=== PATIENT | female | born 1950 | race Caucasian/White ===

== ENCOUNTER 2017-03-06 11:58 | Emergency (ER) | payer OTHER ==
[~2017-03-06] VITALS: Ht 154.9 cm; Wt 79.0 kg
[~2017-03-06 11:58] MED LIST: GABA300C16 PO; HYDR-3011 PO; IBUP400T22 PO; LOSA25TA5 PO; NAPR-260 PO; OMEP20CA16 PO; SITA1TAB PO
[2017-03-06 12:20] VITALS: Ht 154.9 cm; Wt 79.0 kg
[2017-03-06] MEDS ORDERED: IBUPROFEN 600 MG TAB PO ONE (14:30)
[2017-03-06 14:44] LABS: URINE BLOOD (Dip) POC Negative (NEGATIVE)
--- NOTE | 2017-03-06 14:54 | RADRPT ---
PROCEDURE: XR Chest AP portable CLINICAL INDICATION: Cough TECHNIQUE: An AP portable radiograph of the chest was submitted. COMPARISON: None. FINDINGS: Support Hardware: None Cardiovascular: The cardiovascular silhouette appears unremarkable. Lung Brooks: The lung brooks appear clear with no nodule, alveolar infiltrate, or interstitial promi nence evident. Pleural Spaces: No pneumothorax or pleural effusion is identified. Osseous Structures: Mild degenerative changes are seen diffusely through the thoracic spine. Soft Tissues: The soft tissues appear unremarkable. IMPRESSION: Unremarkable portable chest. Physician Chiara Date Time Electronically viewed and signed by Physician Chiara on 03/06/2017 14:53 RH/
--- NOTE | 2017-03-06 15:54 | RADRPT ---
PROCEDURE: Pelvic ultrasound. CLINICAL INDICATION: Pelvic pain TECHNIQUE: Win scale, color doppler, spectral doppler ultrasound of the pelvis was performed with transabdominal and transvaginal transducers. COMPARISON: No prior studies are available for comparison. FINDINGS: Uterus: Position: Anteverted. Small intramural fibroid measuring 0.5 x 0.5 cm within the dorsal aspect of the lower uterine body m ay minimally abut the endometrium. Normal appearance of the endometrium. Ovaries: Not visualized by the lacquer maker. Free fluid: None. Measurements: Endometrium: 0.2 cm Uterus: 5.5 x 2.5 x 3.4 cm IMPRESSION: Ovaries not identified by the lacquer maker. Normal appearance of the endometrium. Small intramural fibroid measuring 0.5 x 0.5 cm within the dorsal aspect of the lower uterine body m ay minimally abut the endometrium. RPTAT: AADD .Deny Niño MD, Date Time Electronically viewed and signed by .Deny Niño MD, on 03/06/2017 15:54 .B/
--- NOTE | 2017-03-06 16:18 | ERD ---
ER Documentation Chief Complaint Date/Time DATE: 03/06/17 TIME: 16:17 Chief Complaint Pt presents with ST, cough and R pelvic pain X 3 days, worst today. HPI This is a 66-year-old female who presents to the emergency department today complaining of sore throat, cough, body aches and right-sided pelvic pain for the past 3 days and worse today. Denies any vaginal bleeding. States she has a history of 3 C-sections. States that her appendix was taken out during her C- section. Denies any fevers or chills. ROS All systems reviewed and are negative except as per history of present illness. Medications Home Meds Active Scripts Tramadol HCl (Tramadol HCl) 50 Mg Tablet, 50 MG PO Q4 Y for PAIN, #20 TAB Prov:DREW HOUSE PA-C 03/06/17 Cetirizine Hcl* (Zyrtec*) 10 Mg Capsule, 10 MG PO DAILY, #14 TAB.CHEW Prov:DREW HOUSE PA-C 03/06/17 Guaifenesin-Dextromethorphan* (Robitussin* DM) 100MG/10MG/5ML Syrup, 10 ML PO Q6H Y for COUGH for 5 Days, ML Prov:DREW HOUSE PA-C 03/06/17 Acetaminophen* (Tylophen*) 500 Mg Capsule, 1 CAP PO Q6H Y for PAIN AND OR ELEVATED TEMP, #30 CAP Prov:DREW HOUSE PA-C 03/06/17 Ibuprofen* (Motrin*) 600 Mg Tab, 600 MG PO Q6, #30 TAB Prov:DREW HOUSE PA-C 03/06/17 Gabapentin* (Gabapentin*) 300 Mg Capsule, 300 MG PO BID, #60 CAP Prov:QUINTON BENTON NP 10/27/16 Ibuprofen* (Motrin*) 400 Mg Tab, 400 MG PO Q6H Y for PAIN AND OR ELEVATED TEMP, #30 TAB Prov:QUINTON BENTON NP 10/27/16 Reported Medications Omeprazole* (Omeprazole*) Unknown Strength Capsule.dr, PO DAILY, #10 10/27/16 Naproxen* (Naprosyn*) Unknown Strength Tablet, PO BID Y for PAIN AND/OR INFLAMMATION, #30 TAB 10/27/16 Losartan Potassium* (Losartan Potassium*) Unknown Strength Tablet, PO BID, TAB 10/27/16 Hydroxyzine Hcl* (Hydroxyzine Hcl*) Unknown Strength Tablet, PO QID, #40 TAB 10/27/16 Sitagliptin Phos/Metformin HCl (Janumet 50-500 mg Tablet) Unknown Strength Tablet, PO, TAB 10/27/16 Allergies Allergies: Coded Allergies: No Known Allergy (Unverified , 10/26/16) PMhx/Soc History of Surgery: Yes (carpal tunnel surgery, C SECTION X 3, APPENDECTOMY) Anesthesia Reaction: No Hx Neurological Disorder: No Hx Respiratory Disorders: No Hx Cardiac Disorders: Yes (HTN) Hx Psychiatric Problems: No Hx Miscellaneous Medical Probl: Yes (DM, ARTHRITIS) Hx Alcohol Use: No Hx Substance Use: No Hx Tobacco Use: No Smoking Status: Never smoker Physical Exam Vitals Vital Signs Date Time Temp Pulse Resp B/P Pulse Ox O2 Delivery O2 Flow Rate FiO2 03/06/17 12:20 97.9 88 20 177/81 95 Physical Exam Const: Pleasant, no acute distress, smiling Head: Atraumatic Eyes: Normal Conjunctiva ENT: Ears TMs normal. Nose no drainage. Throat no erythema no exudate. Neck: Full range of motion..~ No meningismus. Resp: Clear to auscultation bilaterally. No absent breath sounds. No wheezing. Cardio: Regular rate and rhythm, no murmurs Abd: Soft, suprapubic tenderness and right-sided pelvic tenderness, non distended. Normal bowel sounds. Nontender at McBurney's. No left lower quadrant pain. Skin: No petechiae or rashes Back: No midline or flank tenderness Neur: Awake and alert Psych: Normal Mood and Affect Results 24 hrs Laboratory Tests Test 03/06/17 14:43 Bedside Urine pH (LAB) 5.5 Bedside Urine Protein (LAB) Trace Bedside Urine Glucose (UA) 0.50% Bedside Urine Ketones (LAB) Negative Bedside Urine Blood Negative Bedside Urine Nitrite (LAB) Negative Bedside Urine Leukocyte Esterase (L Negative Current Medications Medications (Trade) Dose Ordered Sig/Nita Route PRN Reason Start Time Stop Time Status Last Admin Dose Admin Ibuprofen (Motrin) 600 mg ONCE ONCE PO 03/06/17 14:30 03/06/17 14:31 DC 03/06/17 14:33 DIAGNOSTIC IMAGING REPORT Patient: BRIT FLOREZ : 1950 Age: 66 Sex: F MR #: [id number] DOS: 03/06/17 0000 Ordering MD: DREW HOUSE PA-C Location: [facility] Room/Bed: PROCEDURE: XR Chest AP portable CLINICAL INDICATION: Cough TECHNIQUE: An AP portable radiograph of the chest was submitted. COMPARISON: None. FINDINGS: Support Hardware: None Cardiovascular: The cardiovascular silhouette appears unremarkable. Lung Fernandes: The lung fernandes appear clear with no nodule, alveolar infiltrate, or interstitial prominence evident. Pleural Spaces: No pneumothorax or pleural effusion is identified. Osseous Structures: Mild degenerative changes are seen diffusely through the thoracic spine. Soft Tissues: The soft tissues appear unremarkable. IMPRESSION: Unremarkable portable chest. Physician Chiara Date Time Electronically viewed and signed by Physician Chiara on 03/06/2017 14:53 RH/ CC: DREW HOUSE PA-C IAGNOSTIC IMAGING REPORT Patient: BRIT FLOREZ : 1950 Age: 66 Sex: F MR #: [id number] DOS: 03/06/17 0000 Ordering MD: DREW HOUSE PA-C Location: E Room/Bed: PROCEDURE: Pelvic ultrasound. CLINICAL INDICATION: Pelvic pain TECHNIQUE: Win scale, color doppler, spectral doppler ultrasound of the pelvis was performed with transabdominal and transvaginal transducers. COMPARISON: No prior studies are available for comparison. FINDINGS: Uterus: Position: Anteverted. Small intramural fibroid measuring 0.5 x 0.5 cm within the dorsal aspect of the lower uterine body may minimally abut the endometrium. Normal appearance of the endometrium. Ovaries: Not visualized by the bin tripper operator. Free fluid: None. Measurements: Endometrium: 0.2 cm Uterus: 5.5 x 2.5 x 3.4 cm IMPRESSION: Ovaries not identified by the bin tripper operator. Normal appearance of the endometrium. Small intramural fibroid measuring 0.5 x 0.5 cm within the dorsal aspect of the lower uterine body may minimally abut the endometrium. RPTAT: AADD .Deny Niño MD, MD Date Time Electronically viewed and signed by .Deny Niño MD, MD on 03/06/2017 15:54 .B/ CC: DREW HOUSE PA-C Procedures/[facility] This is 66-year-old female who presents to the emergency department today with multiple complaints. I did obtain a chest x-ray given patient's age and upper respiratory complaints. Patient is afebrile and her oxygen saturation is 95%. Chest x-ray is unremarkable. Lung fernandes are clear with out nodules, alveolar infiltrates or interstitial prominence. There is no pneumothorax or pleural effusion. There are mild degenerative changes seen diffusely throughout the spine Patient was also complaining of some right-sided pelvic pain. she denied any vaginal bleeding and therefore I did obtain a pelvic ultrasound. Pelvic ultrasound shows that the ovaries were not identified by the bin tripper operator. There is a small intramural fibroid measuring 0.5 x 0.5 cm within the dorsal aspect of the lower uterine body that may minimally abut the endometrium. There is no free fluid. Low suspicion for ovarian abscess, ovarian torsion. Patient's right-sided pelvic pain may be due to her fibroid. I have explained her that she should follow-up with an [facility] [employer] [facility]ER[facility]. Patient also has URI symptoms versus influenza-like symptoms. She is afebrile here in the emergency department. I will give her a prescription for Tylenol, Motrin, Zyrtec, Robitussin for her cough. Patient has had symptoms for 3 days and I do not feel that she would benefit from Tamiflu at this time. I have low suspicion for strep pharyngitis, peritonsillar abscess, retropharyngeal abscess, otitis media, PNA, sinusitis, abscess, meningitis, sepsis, or other acute infectious bacterial process. At this time the patient is stable for discharge and outpatient management. Patient should follow up with their PCP in the next 1-2 days. They may return to the emergency department sooner for any persistent or worsening of symptoms. Patient understood and agreed with the plan. Departure Diagnosis: Primary Impression: Multiple complaints Additional Impression: Pelvic pain Condition: DREW Mirza PA-C Mar 06, 2017 16:18
[2017-03-06] MEDS ORDERED: IBUP-1542 PO (16:36)
[2017-03-06] MEDS ORDERED: UDROBDM PO (16:37)
[2017-03-06] MEDS ORDERED: CETI10CA PO (16:37)
[2017-03-06] MEDS ORDERED: ACET500C5 PO (16:37)
[2017-03-06] MEDS ORDERED: TRAM50TA2 PO (16:38)
[2017-03-06 17:44] VITALS: BP 132/68; PULSE 66; RESP 18
== END 2017-03-06 17:46 | disposition home or self-care (01) ==
LOC: FTE 11:58
DX: J02.9 Acute pharyngitis, unspecified (principal); R05 Cough; R10.2 Pelvic and perineal pain; I10 Essential (primary) hypertension; E11.9 Type 2 diabetes mellitus without complications; Z79.84 Long term (current) use of oral hypoglycemic drugs
CPT/HCPCS: 71010; 76830; 76856; 81003; Z7502; Z7610